=== PATIENT | male | born 1955 | race Caucasian/White ===

== ENCOUNTER 2022-05-03 09:32 | Inpatient (IN) ==
[2022-05-03] MEDS ORDERED: ETOMIDATE 20 MG/10 ML VIAL IV STA (09:36)
[2022-05-03] MEDS ORDERED: ROCURONIUM 100 MG/10 ML VIAL IV STA (09:37)
[2022-05-03] MEDS ORDERED: SODIUM CHLORIDE 0.9% 1,000 ML IV STA (09:39)
[2022-05-03] MEDS ORDERED: EPINEPHrine 1 MG/ML VIAL ONE (09:49)
[2022-05-03] MEDS ORDERED: EPINEPHrine 1 MG/10 ML SYRINGE ONE (09:49)
[2022-05-03] MEDS ORDERED: diphenhydrAMINE 50 MG/1 ML VIAL ONE (09:52)
[2022-05-03] MEDS ORDERED: diphenhydrAMINE 50 MG/1 ML VIAL IV STA (09:53)
[2022-05-03] MEDS ORDERED: methylPREDNISolone SOD SUC 125 MG/2 ML VIAL ONE (09:54)
[2022-05-03] MEDS ORDERED: methylPREDNISolone SOD SUC 125 MG/2 ML VIAL IV STA (09:57)
[2022-05-03] MEDS ORDERED: AMIODARONE 150 MG/3 ML VIAL ONE (09:57)
[2022-05-03] MEDS ORDERED: AMIODARONE INJ 150 MG in DEXTROSE 5% 100 ML IV ONE (10:00)
[2022-05-03 10:06] LABS: Basophils % 0.2 % (0.0-0.8); Eosinophils # 0.2 10*3/uL (0.0-0.87); Eosinophils % 1.1 % (0.00-10.9); Hematocrit 43.5 VOL% (42.0-52.0); Hemoglobin 14.6 GM/DL (14.0-18.0); Immature Granulocytes % 1.4 %; Lymphocytes # 10.2 10*3/uL (1.4-4.0); Lymphocytes % 72.4 % (21.2-54.2); Mean Corpuscular HGB Conc 33.6 GM/DL (32-36); Mean Corpuscular Volume 91.2 FL (87-102); Monocytes # 0.5 10*3/uL (0.11-0.8); Monocytes % 3.8 % (1.7-12.7); Neutrophils % 21.1 % (38.7-73.9); Platelet Count 295 T/CUMM (130-400); Red Blood Count 4.77 MC/CUMM (3.8-5.5); White Blood Count 14.1 T/CUMM (4-12)
[2022-05-03 10:08] LABS: Arterial Base Excess iSTAT -13 MMOL/L (-2.5-2.5); Arterial Bicarbonate iSTAT 13.5 MMOL/L (20-26); Arterial O2 Saturation iSTAT 99 % (95-100); Arterial PCO2 iSTAT 34 MM HG (35-48); Arterial PO2 iSTAT 161 MM HG (80-95); Arterial Total CO2 iSTAT 14 MMO/L (23-27)
[2022-05-03] MEDS ORDERED: SODIUM BICARBONATE 50 MEQ/50 ML VIAL IV ONE (10:09)
[2022-05-03] MEDS ORDERED: SODIUM BICARBONATE 10 MEQ/10 ML SYRINGE IV ONE ×2 (10:09→10:51)
[2022-05-03 10:16] LABS: PT Patient Result 11.4 SECS (10.1-12.1); Partial Thromboplastin Time 29.2 SECS (23.7-32.9)
[2022-05-03 10:25] LABS: Alanine Aminotransferase 31 U/L (16-61); Albumin 3.2 G/DL (3.4-5.0); Alkaline Phosphatase 61 U/L (45-117); Aspartate Amino Transferase 21 U/L (0-37); Blood Urea Nitrogen 16 MG/DL (7-18); Calcium 8.4 MG/DL (8.5-10.1); Carbon Dioxide 27 MMOL/L (21-32); Chloride 107 MMOL/L (98-107); Glucose 207 MG/DL (74-106); Osmolality,Calculated 287.3 MOS/KG (273-304); Potassium 2.7 MMOL/L (3.5-5.1); Sodium 141 MMOL/L (136-145); Total Protein 6.6 G/DL (6.4-8.2)
[2022-05-03 10:30] LABS: Atypical Lymphocytes Few; Lymphocytes 71 % (20-55); Platelet Estimate Adequate; Total Cells Counted 100
[2022-05-03 10:49] LABS: Hyaline Casts,Urine 10 /LPF (0-3); Mucus,Urine Occasional /LPF (Occasional); RBC,Urine 82 /HPF (0-4); Renal Epithelial Cells,Urine Occasional /HPF (<1)
[2022-05-03 10:50] LABS: Bilirubin,Urine Negative (Negative); Blood, Urine Moderate mg/dL (Negative); Glucose,Urine (UA) Negative (Negative); Ketones,Urine Negative (Negative); Nitrite,Urine Negative (Negative); Protein,Urine >=300 mg/dL (Negative); Urine Appearance Clear (Clear); Urine Color Yellow (Yellow); Urine Specific Gravity > 1.030 (1.001-1.035); Urine Urobilinogen 0.2 eU/dL (<2.0); Urine pH 6.5 (4.5-8.0)
[2022-05-03 10:57] LABS: Barbiturates Screen,Urine Negative (Negative); Benzodiazepines Screen,Urine Positive (Negative); Cannabinoid Screen,Urine Positive (Negative); Opiate Screen,Urine Negative (Negative); Phencyclidine Screen,Urine Negative (Negative)
[2022-05-03] MEDS ORDERED: MIDAZOLAM 2 MG/2 ML VIAL ONE (11:19)
[2022-05-03] MEDS ORDERED: ALBUTEROL 2.5 MG/3 ML NEB RESP TX PRN (11:36)
[2022-05-03] MEDS ORDERED: ONDANSETRON 4 MG/2 ML VIAL IV PRN (11:37)
[2022-05-03] MEDS ORDERED: MORPHINE 2 MG/1 ML SYRINGE IV PRN (11:37)
[2022-05-03] MEDS ORDERED: MIDAZOLAM 2 MG/2 ML VIAL IV STA (11:50)
[2022-05-03] MEDS ORDERED: LACTATED RINGERS 1,000 ML IV SCH (12:00)
[2022-05-03] MEDS ORDERED: ENOXAPARIN 40 MG/0.4 ML SYRINGE SUBCUT SCH (12:00)
[2022-05-03 12:40] LABS: Arterial Base Excess iSTAT 3 MMOL/L (-2.5-2.5); Arterial O2 Saturation iSTAT 100 % (95-100); Arterial PCO2 iSTAT 54 MM HG (35-48); Arterial PO2 iSTAT 353 MM HG (80-95); Arterial Total CO2 iSTAT 32 MMO/L (23-27); Arterial pH iSTAT 7.355 (7.35-7.45)
[2022-05-03] MEDS: POTASSIUM CHLORIDE RIDER 10 MEQ/100 ML PREMIX IV PRN ×4 (13:30→23:12)
[2022-05-03] MEDS: FAMOTIDINE 20 MG/2 ML VIAL IV SCH ×2 (13:30→23:08)
[2022-05-03] MEDS: methylPREDNISolone SOD SUC 40 MG/1 ML VIAL IV SCH (17:50)
[2022-05-03] MEDS ORDERED: MELATONIN 3 MG TABLET PO PRN (20:34)
[2022-05-03] MEDS ORDERED: amLODIPine 10 MG TABLET PO SCH (21:00)
[2022-05-03] MEDS ORDERED: TAMSULOSIN 0.4 MG CAPSULE PO SCH (21:00)
[2022-05-03] MEDS ORDERED: ACETAMINOPHEN 325 MG TABLET PO PRN (22:46)
[2022-05-04] MEDS: POTASSIUM CHLORIDE RIDER 10 MEQ/100 ML PREMIX IV PRN ×2 (01:10→06:04)
[2022-05-04] MEDS: methylPREDNISolone SOD SUC 40 MG/1 ML VIAL IV SCH (03:10)
[2022-05-04] MEDS: IBUPROFEN 400 MG TABLET PO PRN ×2 (03:30→09:41)
[2022-05-04 04:39] LABS: Allen Test Positive; Pt O2 Delivery Device CPAP
[2022-05-04 04:42] LABS: ABG Base Excess 1.7 MMOL/L (-2.5-2.5); ABG HCO3 25.8 MMOL/L (20-26); ABG Oxygen Saturation 94.8 % (95-100); ABG PCO2 43.2 MM HG (35-48); ABG PH 7.401 (7.35-7.45); ABG PO2 72.4 MM HG (80-95); ABG TCO2 23.4 MMOL/L (23-27)
[2022-05-04 05:19] LABS: Basophils % 0.1 % (0.0-0.8); Hematocrit 38.9 VOL% (42.0-52.0); Hemoglobin 13.3 GM/DL (14.0-18.0); Immature Granulocytes % 1.3 %; Immature Granulocytes Absolute 0.31 #; Lymphocytes # 2.2 10*3/uL (1.4-4.0); Lymphocytes % 9.2 % (21.2-54.2); Mean Corpuscular HGB Conc 34.2 GM/DL (32-36); Mean Platelet Volume 10.2 FL (9.6-12.0); Monocytes # 0.5 10*3/uL (0.11-0.8); Monocytes % 2.2 % (1.7-12.7); Neutrophils % 87.2 % (38.7-73.9); Platelet Count 267 T/CUMM (130-400); Red Blood Count 4.37 MC/CUMM (3.8-5.5); White Blood Count 23.6 T/CUMM (4-12)
[2022-05-04 05:28] LABS: INR 1.2; PT Patient Result 12.7 SECS (10.1-12.1)
[2022-05-04 05:40] LABS: Albumin 3.2 G/DL (3.4-5.0); Bilirubin,Total 0.4 MG/DL (0.20-1.00); Osmolality,Calculated 273.1 MOS/KG (273-304); Potassium 3.6 MMOL/L (3.5-5.1); Total Protein 6.7 G/DL (6.4-8.2)
[2022-05-04 05:42] LABS: Lymphocytes 11 % (20-55); Total Cells Counted 100
[2022-05-04 05:43] LABS: Platelet Estimate Adequate
[2022-05-04 07:55] VITALS: BP 129/69
[2022-05-04] MEDS ORDERED: LOSARTAN 50 MG TABLET PO SCH (09:00)
[2022-05-04] MEDS ORDERED: METOPROLOL SUCCINATE XL 50 MG TABLET PO SCH (09:00)
== END 2022-05-04 12:05 | disposition home or self-care (01) | DRG 915 ==
LOC: N.ED 09:32 → N.EDINP 11:36 → SUATTDRO 11:36 → N.ICU 11:59 → N.3E 17:51
PROVIDERS: ADMIT Family Medicine; ATTEND Emergency Medicine